=== PATIENT | female | born 1965 | race Caucasian/White ===

== ENCOUNTER 2017-12-07 11:55 | Day surgery (SDC) | payer OTHER ==
[2017-12-07] MEDS ORDERED: PROPOFOL 60 ML (15:09)
== END 2017-12-07 15:38 | disposition home or self-care (01) ==
LOC: GIL 11:55
DX: Z12.11 Encounter for screening for malignant neoplasm of colon (principal); K29.70 Gastritis, unspecified, without bleeding; K44.9 Diaphragmatic hernia without obstruction or gangrene; K63.89 Other specified diseases of intestine; J45.909 Unspecified asthma, uncomplicated
CPT/HCPCS: 43239; 88305; 88312